=== PATIENT | female | born 1990 | race Caucasian/White ===

== ENCOUNTER 2017-01-02 18:00 | Inpatient (IN) | payer OTHER ==
[~2017-01-02] VITALS: Ht 165.1 cm; Wt 87.5 kg
[2017-01-02 19:33] VITALS: BP 110/69; PULSE 86; RESP 20
[2017-01-02] MEDS ORDERED: MISOPROSTOL 200 MCG TAB PR PRN (21:00)
[2017-01-02] MEDS ORDERED: IBUPROFEN 600 MG TAB PO PRN (21:00)
[2017-01-02] MEDS ORDERED: LIDOCAINE 1% (MPF) 30 ML INJ INJ PRN (21:00)
[2017-01-02] MEDS ORDERED: METHYLERGONOVINE 0.2 MG INJ IM PRN (21:00)
[2017-01-02] MEDS ORDERED: LACTATED RINGER'S 1,000 ML IV PRN (21:00)
[2017-01-02] MEDS ORDERED: CARBOPROST 250 MCG INJ IM PRN (21:00)
[2017-01-02] MEDS ORDERED: OXYTOCIN 30 UNITS/LR 500 ML IV PRN (21:00)
[2017-01-02] MEDS ORDERED: OXYTOCIN 30 UNITS/LR 500 ML IV SCH ×3 (21:00)
[2017-01-02 21:15] VITALS: Ht 165.1 cm; Wt 87.5 kg
[2017-01-02] MEDS: LACTATED RINGER'S 1,000 ML IV SCH (21:15)
[2017-01-02 21:42] LABS: ADD SCAN DIFF NO
[2017-01-02 21:44] LABS: BASOPHILS % 0.4 % (0.0-2.0); EOSINOPHILS # 0.1 10^3/ul (0.0-0.5); HEMATOCRIT 32.4 % (37.0-47.0); HEMOGLOBIN 10.5 g/dl (12.0-16.0); LYMPHOCYTES # 2.1 10^3/ul (0.8-2.9); LYMPHOCYTES % 22.2 % (15.0-51.0); MEAN CORPUSCULAR HEMOGLOBIN 26.9 pg (29.0-33.0); MEAN CORPUSCULAR HGB CONC 32.4 g/dl (32.0-37.0); MEAN CORPUSCULAR VOLUME 82.9 fl (82.0-101.0); MEAN PLATELET VOLUME 11.3 fl (7.4-10.4); MONOCYTE # 0.3 10^3/ul (0.3-0.9); MONOCYTES % 3.2 % (0.0-11.0); NEUTROPHILS % 72.9 % (39.0-77.0); PLATELET COUNT 316 10^3/UL (140-415); RED BLOOD COUNT 3.91 10^6/ul (4.20-5.40); RED CELL DISTRIBUTION WIDTH 14.6 % (11.5-14.5); WHITE BLOOD COUNT 9.7 10^3/ul (4.8-10.8)
[2017-01-02 22:06] LABS: INR 0.97; PROTIME 12.9 Sec (12.2-14.2)
[2017-01-02 22:09] LABS: PARTIAL THROMBOPLASTIN TIME 28.8 Sec (25.0-35.0)
[2017-01-03] MEDS: LACTATED RINGER'S 1,000 ML IV SCH ×2 (05:41→08:22)
[2017-01-03] MEDS ORDERED: FENTAnyl 2MCG/ML-ROPIV 0.2% 100 ML ONE (05:57)
[2017-01-03] MEDS ORDERED: ONDANSETRON 4 MG INJ IV PRN (06:30)
[2017-01-03] MEDS ORDERED: FENTAnyl 2MCG/ML-ROPIV 0.2% 100 ML BAG EPI SCH (06:30)
[2017-01-03] MEDS ORDERED: NALOXONE (0.4 MG/ML) INJ IV PRN (06:30)
[2017-01-03] MEDS ORDERED: DIPHENHYDRAMINE 50 MG INJ IV PRN (06:30)
[2017-01-03] MEDS ORDERED: MINERAL OIL LIGHT 10 ML VIAL TOP PRN (07:30)
[2017-01-03] MEDS ORDERED: CEFAZOLIN 2 GM/50 ML (PMX) 50 ML IVPB ONE ×2 (10:11→10:30)
--- NOTE | 2017-01-03 10:23 | HP ---
Date/Time of Note Date/Time of Note DATE: 01/03/17 TIME: 10:20 OB - History Hx of Present Free Text/Dictation admitted for elective induction Last Menstrual Period: Mar 17, 2017 Estimated Due Date: Jan 05, 2017 : 3 Para: 2 Care: Good Care Ultrasounds: Normal mid trimester US Obstetrical Complications: None Medical Complications: None Past Family/Social History * Past Medical, Surgical, Family and Obstetric Histories reviewed from chart. Blood Type: O+ Rubella: immune RPR/VDRL: Negative GBS Status: Negative HBsAG: Negative OB Admission Exam Vital Signs Vital Signs Vital Signs Date Time Temp Pulse Resp B/P Pulse Ox O2 Delivery O2 Flow Rate FiO2 01/02/17 19:33 98.3 86 20 110/69 Room Air Physical Exam HEENT: WNL Heart: Rhythm Normal Lungs: Clear, Equal Abdomen: WNL Extremities: Normal Reflexes: Normal Cervical Dilatation: 2cm Effacement: 50% Station: -3 Membranes: Intact Heart Rate: 140's Accelerations: Accelerations Present Decelerations: No Decelerations Varibility: Marked Contractions on Admission: None Last 72 hours Lab Results CBC & BMP 01/02/17 21:15 OB Assessment/Plan Reason for admission: induction of labor Other Assessment: term gestation Induction Method: per Pitocin Protocol KAIT RODRIGUEZ MD Jan 03, 2017 10:23
--- NOTE | 2017-01-03 10:29 | LDN ---
Date/Time of Note Date/Time of Note DATE: 01/03/17 TIME: 10:24 Delivery Summary of a viable infant over intact perineum Weeks of Gestation 39+ Placenta Delivered: Manually, Intact & Complete Meconium: none Episiotomy: No Perineal laceration: 1 Laceration repair: 1st degree perineal laceration was repaired in layers with 2 0 Chromic Anesthesia type: Epidural Estimated blood loss: 200 Sponge & Needle done & correct: Yes All needle counts correct: Yes Any foreign bodies felt in the: No Problems: Delivery Information Sex Sex: female Apgars 1 Minute: 9 5 Minute: 9 Suctioning Nose & mouth suctioned at whit: Yes Delee suction performed: No Umbilical Cord Umbilical cord with: 3 Vessels Cord presentations: no nuchal cord Cord Blood was obtained: Yes Mother & Baby Disposition Disposition Mom & Baby to Maternity; Good: Yes (mother and baby were recovered in good codition ) Mom transferred to: Other (maternity ) Baby to NICU: No KAIT RODRIGUEZ MD Jan 03, 2017 10:29
[2017-01-03 12:15] VITALS: BP 105/65; PULSE 67; RESP 18
[2017-01-03] MEDS ORDERED: ZOLPIDEM 5 MG TAB PO PRN (12:30)
[2017-01-03] MEDS ORDERED: LANOLIN 7 GM TUBE TOP PRN (12:30)
[2017-01-03] MEDS ORDERED: BENZOCAINE 20% 56 ML SPRAY TOP PRN (12:30)
[2017-01-03] MEDS ORDERED: DIBUCAINE 1% 30 GM OINT PR PRN (12:30)
[2017-01-03] MEDS ORDERED: CARBOPROST 250 MCG INJ IM PRN (12:30)
[2017-01-03] MEDS ORDERED: OXYTOCIN 30 UNITS/LR 500 ML IV PRN (12:30)
[2017-01-03] MEDS ORDERED: MISOPROSTOL 200 MCG TAB PR PRN (12:30)
[2017-01-03] MEDS ORDERED: METHYLERGONOVINE 0.2 MG INJ IM PRN (12:30)
[2017-01-03] MEDS ORDERED: WITCH HAZEL/GLYCERIN PAD PR PRN (12:30)
[2017-01-03] MEDS ORDERED: ACETAMINOPHEN/CODEINE #3 TAB PO PRN ×2 (12:30)
[2017-01-03 12:45] VITALS: BP 107/65; PULSE 73; RESP 17
[2017-01-03] MEDS: LACTATED RINGER'S 1,000 ML IV* SCH ×2 (15:48→22:19)
[2017-01-03 16:40] VITALS: BP 114/67; PULSE 87; RESP 18
[2017-01-03] MEDS: CEPHALEXIN 500 MG CAP PO SCH ×2 (17:46→23:38)
[2017-01-03] MEDS: IBUPROFEN 600 MG TAB PO SCH ×2 (17:46→23:38)
[2017-01-03 19:30] VITALS: BP 113/66; PULSE 82; RESP 20
[2017-01-03] MEDS: SENNA/DOCUSATE NA (8.6MG/50MG) TAB PO SCH (20:29)
[2017-01-03] MEDS: MAGNESIUM HYDROXIDE 30ML CUP PO SCH (20:30)
[2017-01-03 23:45] VITALS: BP 114/80; PULSE 74; RESP 19
[2017-01-04 04:15] VITALS: BP 106/64; PULSE 66; RESP 18
[2017-01-04] MEDS: CEPHALEXIN 500 MG CAP PO SCH ×4 (06:08→23:34)
[2017-01-04] MEDS: IBUPROFEN 600 MG TAB PO SCH ×4 (06:09→23:34)
[2017-01-04] MEDS: LACTATED RINGER'S 1,000 ML IV* SCH (06:10)
[2017-01-04 07:59] LABS: ADD SCAN DIFF NO
[2017-01-04 08:04] LABS: BASOPHILS % 0.3 % (0.0-2.0); EOSINOPHILS # 0.3 10^3/ul (0.0-0.5); EOSINOPHILS % 2.8 % (0.0-7.0); HEMATOCRIT 31.2 % (37.0-47.0); HEMOGLOBIN 10.3 g/dl (12.0-16.0); LYMPHOCYTES # 2.3 10^3/ul (0.8-2.9); LYMPHOCYTES % 25.2 % (15.0-51.0); MEAN CORPUSCULAR HEMOGLOBIN 27.3 pg (29.0-33.0); MEAN CORPUSCULAR VOLUME 82.8 fl (82.0-101.0); MONOCYTE # 0.5 10^3/ul (0.3-0.9); MONOCYTES % 5.3 % (0.0-11.0); NEUTROPHILS % 66.1 % (39.0-77.0); PLATELET COUNT 281 10^3/UL (140-415); RED BLOOD COUNT 3.77 10^6/ul (4.20-5.40); RED CELL DISTRIBUTION WIDTH 14.8 % (11.5-14.5); WHITE BLOOD COUNT 9.1 10^3/ul (4.8-10.8)
[2017-01-04 08:08] VITALS: BP 113/73; PULSE 69; RESP 20
[2017-01-04] MEDS: MAGNESIUM HYDROXIDE 30ML CUP PO SCH ×2 (10:30→20:52)
[2017-01-04] MEDS: SENNA/DOCUSATE NA (8.6MG/50MG) TAB PO SCH ×2 (10:30→20:52)
[2017-01-04 12:02] VITALS: BP 111/63; PULSE 61; RESP 20
--- NOTE | 2017-01-04 14:40 | DS ---
Date/Time of Note Date/Time of Note home next day DATE: 01/04/17 TIME: 14:37 Obstetrical Discharge Record Final Diagnosis Final Diagnosis: Term delivered Other Final Diagnosis S/P vaginal delivery Vaginal Delivery Obstetrical Delivery: Spontaneous, Laceration, Repaired Complications Augmentation: Yes Condition on Discharge Physical Assessment Last Vitals: see nurses notes Voiding: Yes Bowel Movement: Yes Breast: Soft, non-tender, Filling Fundus: Firm Abdomen and Incision: soft BS + Episiotomy: Perineum: healing Calf Tenderness: No Patient Condition: Good KAIT RODRIGUEZ MD Jan 04, 2017 14:40
--- NOTE | 2017-01-04 14:41 | PD.PPDC ---
FAMILY PRACTITIONER Discharge Instruction Provider Information Physician Information 26 y/o female had vaginal delivery Diagnosis Final Diagnosis: S/P vaginal delivery Condition Patient Condition: Good Diet Diet: Resume Regular Diet Activity/Restrictions Activity: Normal Activity May Shower Restrictions: Nothing in the Vagina Return to Work or School: Feb 18, 2017 Follow-up Follow-up with Physician: 4, Week/Weeks (in clinic ) Return to clinic for OB Instructions: Breast Tenderness Depression KAIT RODRIGUEZ MD Jan 04, 2017 14:41
[2017-01-04] MEDS ORDERED: IBUP-1542 PO (14:42)
[2017-01-04 16:53] VITALS: BP 112/75; PULSE 73; RESP 20
[2017-01-04 19:40] VITALS: BP 112/65; PULSE 73; RESP 18
[2017-01-05 04:10] VITALS: BP 91/59; PULSE 59; RESP 18
[2017-01-05] MEDS: IBUPROFEN 600 MG TAB PO SCH ×2 (05:40→13:11)
[2017-01-05] MEDS: CEPHALEXIN 500 MG CAP PO SCH ×2 (05:40→13:11)
[2017-01-05 08:18] VITALS: BP 111/72; PULSE 65; RESP 20
[2017-01-05] MEDS ORDERED: MEASLES,MUMPS,RUBELLA VACCINE INJ SC* ONE (09:00)
[2017-01-05] MEDS ORDERED: VARICELLA VACCINE LIVE/PF 1,350 UNIT/0.5 ML ML SC* ONE (09:00)
[2017-01-05] MEDS ORDERED: DIPHTH/TET/ACEL PERTUSS (ADULT) 0.5 ML VIAL IM* ONE (09:00)
[2017-01-05] MEDS: SENNA/DOCUSATE NA (8.6MG/50MG) TAB PO SCH (09:07)
[2017-01-05] MEDS: MAGNESIUM HYDROXIDE 30ML CUP PO SCH (09:07)
== END 2017-01-05 13:55 | disposition home or self-care (01) | DRG 775 ==
LOC: L-D 18:26 → PP1 01-03 12:07
PROVIDERS: ADMIT Obstetrics & Gynecology; ATTEND Obstetrics & Gynecology
PROC: 0HQ9XZZ Repair Perineum Skin, External Approach (ICD-10-PCS; 2017-01-02)
PROC: 10E0XZZ Delivery of Products of Conception, External Approach (ICD-10-PCS; principal; 2017-01-03)
DX: O70.0 First degree perineal laceration during delivery (principal); E66.9 Obesity, unspecified; O99.214 Obesity complicating childbirth; Z68.32 Body mass index [BMI] 32.0-32.9, adult; Z3A.39 39 weeks gestation of pregnancy; Z37.0 Single live birth
CPT/HCPCS: 62319; 85025; 85610; 85730; 86592; 86900; 86901; 87340; 90715; 90716; J0690; J2590; J3010; J7120

== ENCOUNTER 2019-02-21 04:25 | Emergency (ER) | payer OTHER ==
[~2019-02-21] VITALS: Ht 165.1 cm; Wt 87.9 kg
[~2019-02-21 04:25] MED LIST: CLIN300C10 PO; HYDR-4011 PO; IBUP-1542 PO
[2019-02-21 04:28] VITALS: BP 129/88; PULSE 70; RESP 16; Ht 165.1 cm; Wt 87.9 kg
== END 2019-02-21 05:05 | disposition home or self-care (01) ==
LOC: FTE 04:25
DX: K08.89 Other specified disorders of teeth and supporting structures (principal)
CPT/HCPCS: 81025; Z7502; 99283